=== PATIENT | male | born 1945 | race Two or more races ===

== ENCOUNTER 2023-04-11 08:58 | Inpatient (IN) | payer OTHER ==
[~2023-04-11] VITALS: Ht 162.6 cm; Wt 63.5 kg
[2023-04-11] MEDS ORDERED: LOSARTAN POTAS100 MG PO (09:28)
[2023-04-11] MEDS ORDERED: FAMOTIDINE20 MG PO (09:29)
[2023-04-11] MEDS ORDERED: AMLODIPINE BESY10 MG PO (09:29)
[2023-04-11] MEDS ORDERED: GABAPENTIN600 MG PO (09:29)
[2023-04-11] MEDS ORDERED: RINGERS SOLUTION,LACTATED 1,000 ML IV STA (10:40)
[2023-04-11] MEDS ORDERED: 0.9 % SODIUM CHLORIDE 1,000 ML IV STA (10:41)
[2023-04-11 11:40] LABS: HEMATOCRIT 52.1 % (39.0-48.0); HEMOGLOBIN 17.7 g/dL (13-16.00); MEAN CELL VOLUME 90.3 fL (80.0-100.00); MEAN CORPUSCULAR HEMOGLOBIN 30.6 pg (27.00-32.0); MEAN CORPUSCULAR HGB CONC 33.9 g/dl (32.0-36.0); PLATELET COUNT 362 K/uL (150-450); RED BLOOD COUNT 5.76 M/uL (4.00-6.00); RED CELL DISTRIBUTION WIDTH 14.7 % (11.5-14.5)
[2023-04-11 12:12] LABS: ALBUMIN 3.8 gm/dL (3.4-5.0); BILIRUBIN TOTAL 0.46 mg/dL (0.3-1.2); BILIRUBIN,CONJUGATED 0.18 mg/dL (0.0-0.2); BILIRUBIN,UNCONJUGATED 0.28 mg/dL (0.0-0.6); CALCIUM 8.9 mg/dL (8.5-10.1); TOTAL PROTEIN 8.2 gm/dL (6.4-8.2)
[2023-04-11 12:31] LABS: GFR 11.92
[2023-04-11 12:33] LABS: CREATININE SERUM 4.8 mg/dL (0.70-1.30)
[2023-04-11 12:34] LABS: POTASSIUM 2.97 mEq/L (3.5-5.1)
[2023-04-11] MEDS ORDERED: POTASSIUM CHLORIDE/D5-0.9%NACL 40 MEQ/1,000 ML PIGGYBAG IV STA (14:39)
[2023-04-11] MEDS ORDERED: PIPERACILLIN/TAZOBACTAM SODIUM 2.25 GM in DEXTROSE 5 % IN WATER 50 ML IV SCH (20:05)
[2023-04-11] MEDS ORDERED: TAMSULOSIN HCL 0.4 MG CAP PO SCH (20:06)
[2023-04-11] MEDS ORDERED: ACETAMINOPHEN 500 MG GEL..CAP PO PRN (20:15)
[2023-04-11] MEDS ORDERED: 0.9 % SODIUM CHLORIDE 1,000 ML IV SCH (20:15)
[2023-04-11] MEDS ORDERED: MEPERIDINE HCL/PF 25 MG/ML VIAL IM PRN (20:15)
[2023-04-11] MEDS ORDERED: ONDANSETRON HCL 4 MG in 0.9 % SODIUM CHLORIDE 50 ML IV PRN (20:15)
[2023-04-12 01:09] LABS: PHOSPHOROUS 4.1 mg/dL (2.5-4.9)
[2023-04-12 01:10] LABS: MAGNESIUM 1.6 mg/dL (1.8-2.4)
[2023-04-12 01:15] LABS: INR 1.2; PARTIAL THROMBOPLASTIN TIME 37.3 SECONDS (22.0-34.0); PROTHROMBIN TIME 12.4 SECONDS (9.0-11.5)
[2023-04-12 02:38] LABS: PH,URINE 5.5 (5.0-8.0); URINE APPEARANCE Cloudy; URINE BILIRRUBIN Negative (NEGATIVE); URINE BLOOD Small; URINE COLOR Dark Yellow; URINE GLUCOSE Negative (NEGATIVE); URINE LEUKOCYTE Negative; URINE NITRATE Negative
[2023-04-12 02:41] LABS: URINE EPITHELIAL CELLS 34.7 uL (0.0-38.8); URINE RBC 15.9 uL (0.0-20.8); URINE WBC 14.3 uL (0.0-23.2)
[2023-04-12 04:08] LABS: URINE PROTEIN 100 (NEGATIVE)
[2023-04-12 04:09] LABS: URINE CRYSTALS FEW /HPF
[2023-04-12] MEDS ORDERED: MAGNESIUM SULFATE IN WATER 2 GM/50 ML PIGGYBAG IV ONE (07:15)
[2023-04-12] MEDS ORDERED: POTASSIUM CHLORIDE 20MEQ/100ML H2O PB IV ONE (07:45)
[2023-04-12] MEDS ORDERED: ENOXAPARIN SODIUM 30 MG/0.3 ML SYRINGE SUBCUTANEO SCH (09:00)
[2023-04-12] MEDS ORDERED: AMLODIPINE BESYLATE 10 MG TABLET PO SCH (09:00)
[2023-04-12] MEDS ORDERED: FAMOTIDINE/PF 20 MG in 0.9 % SODIUM CHLORIDE 8 ML IV PUSH SCH (09:00)
[2023-04-12] MEDS ORDERED: CEFTRIAXONE SODIUM 2,000 MG VIAL IV SCH (17:00)
[2023-04-12] MEDS ORDERED: METRONIDAZOLE/SODIUM CHLORIDE 100 ML IV SCH (17:00)
[2023-04-13 05:34] LABS: HEMATOCRIT 42.9 % (39.0-48.0); HEMOGLOBIN 14.6 g/dL (13-16.00); MEAN CELL VOLUME 91.4 fL (80.0-100.00); MEAN CORPUSCULAR HEMOGLOBIN 31.1 pg (27.00-32.0); PLATELET COUNT 310 K/uL (150-450); RED CELL DISTRIBUTION WIDTH 14.1 % (11.5-14.5)
[2023-04-13 06:05] LABS: ALBUMIN 3.1 gm/dL (3.4-5.0); BILIRUBIN TOTAL 0.81 mg/dL (0.3-1.2); CALCIUM 8.8 mg/dL (8.5-10.1); CREATININE SERUM 1.63 mg/dL (0.70-1.30); GFR 41.45; GLOBULINA 3.2 G/DL (2.4-3.5); POTASSIUM 3.18 mEq/L (3.5-5.1); TOTAL PROTEIN 6.3 gm/dL (6.4-8.2)
[2023-04-13] MEDS ORDERED: RINGERS SOLUTION,LACTATED 1,000 ML IV SCH (17:45)
[2023-04-14 09:12] LABS: HEMATOCRIT 40.3 % (39.0-48.0); HEMOGLOBIN 13.8 g/dL (13-16.00); MEAN CORPUSCULAR HEMOGLOBIN 30.4 pg (27.00-32.0); MEAN CORPUSCULAR HGB CONC 34.2 g/dl (32.0-36.0); PLATELET COUNT 345 K/uL (150-450); RED BLOOD COUNT 4.53 M/uL (4.00-6.00)
[2023-04-14 09:32] LABS: BILIRUBIN TOTAL 1.16 mg/dL (0.3-1.2); CALCIUM 8.8 mg/dL (8.5-10.1); CREATININE SERUM 1.09 mg/dL (0.70-1.30); GFR 65.95; GLOBULINA 3.1 G/DL (2.4-3.5); MAGNESIUM 1.9 mg/dL (1.8-2.4); POTASSIUM 3.4 mEq/L (3.5-5.1); TOTAL PROTEIN 6.1 gm/dL (6.4-8.2)
[2023-04-14 09:34] LABS: PHOSPHOROUS 2.1 mg/dL (2.5-4.9)
[2023-04-14] MEDS ORDERED: POTASSIUM PHOS,M-BASIC-D-BASIC 3 MM/ML VIAL IV NR (13:45)
[2023-04-14] MEDS ORDERED: SODIUM BICARBONATE 1 MEQ/ML DISP.SYRIN 50ML IV ONE (13:45)
== END 2023-04-15 12:43 | disposition home or self-care (01) | DRG 392 ==
LOC: ER 08:58 → EDBD 20:27 → MEDJ 20:27 → MEDI 20:27 → MEDJ 21:18
PROVIDERS: General Practice; Internal Medicine Nephrology; ADMIT Internal Medicine; ATTEND Internal Medicine
PROC: BW21ZZZ Computerized Tomography (CT Scan) of Abdomen and Pelvis (ICD-10-PCS; principal; 2023-04-11)
DX: K52.89 Other specified noninfective gastroenteritis and colitis (principal); N17.8 Other acute kidney failure; K57.92 Diverticulitis of intestine, part unspecified, without perforation or abscess without bleeding; I12.9 Hypertensive chronic kidney disease with stage 1 through stage 4 chronic kidney disease, or unspecified chronic kidney disease; N18.9 Chronic kidney disease, unspecified